=== PATIENT | female | born 1945 | race Caucasian/White ===

== ENCOUNTER 2017-02-26 09:23 | Emergency (ER) | payer OTHER ==
[~2017-02-26] VITALS: Ht 149.9 cm; Wt 55.0 kg
[2017-02-26 09:27] VITALS: BP 188/79; PULSE 66; RESP 18; TEMP 98.5; O2SAT 98
[2017-02-26] MEDS ORDERED: HYDR-3576 PO (09:48)
[2017-02-26] MEDS ORDERED: ATOR80TA45 PO (09:48)
[2017-02-26] MEDS ORDERED: ASPI-516 CHEW (09:48)
[2017-02-26] MEDS ORDERED: LANTUS2P SQ (09:48)
[2017-02-26] MEDS ORDERED: LISI20TA3 PO (09:48)
[2017-02-26] MEDS ORDERED: METF1000 PO (09:48)
[2017-02-26] MEDS ORDERED: FENO160T PO (09:48)
[2017-02-26] MEDS ORDERED: ZOLP10TA3 PO (09:48)
[2017-02-26] MEDS ORDERED: CITA40TA4 PO (09:48)
--- NOTE | 2017-02-26 10:10 | PD ---
HPI Chief Complaint: Fall Time Seen by Provider: 09:55 Travel History International Travel<30 days: No Contact w/Intl Traveler<30days: No Traveled to known affect area: No History of Present Illness HPI 72-year-old female presents to emergency department complaining of low back pain and left hip pain after a slip and fall that occurred just prior to arrival. Patient states that she slipped and fell onto her buttocks and has developed this pain. Patient denies numbness, tingling, saddle anesthesia, loss of bowel or bladder function. Patient does not have chronic back pain. Patient has a history of diabetes. Patient states that this time her low back pain as constant, moderate, and worse with movement. Patient is able to move her hip however she is having difficulty secondary to pain. She is not taking medication for this yet. PFSH Past Medical History High Cholesterol: Yes Diabetes: Yes Patient Takes Glucophage: Yes Diminished Hearing: No Hypertension: Yes Immunizations Current: Yes Tetanus Vaccination: Unknown Influenza Vaccination: Yes ?: Not Menopausal: Yes Tubal Ligation: Yes Past Surgical History Section: Yes Cholecystectomy: Yes Eye Surgery: Yes (CATARACT SURGERY ) Genitourinary Surgery: Yes (BLADDER STIMULATOR ) Social History Alcohol Use: Yes (occ) Tobacco Use: No Substance Use: No Allergies-Medications (Allergen,Severity, Reaction): Coded Allergies: Sulfa (Sulfonamide Antibiotics) (Verified Allergy, Unknown, itching/ rashes , 02/26/17) Reported Meds & Prescriptions Reported Meds & Active Scripts Active Robaxin (Methocarbamol) 500 Mg Tab 500 Mg PO TID 5 Days Reported Aspirin 81 Mg Chew 81 Mg CHEW DAILY Citalopram (Citalopram Hydrobromide) 40 Mg Tab 40 Mg PO DAILY Zolpidem (Zolpidem Tartrate) 10 Mg Tab 10 Mg PO HS PRN Lorcet (Hydrocodone-Acetaminophen) 5-325 mg Tab 1 Tab PO Q6H PRN Lisinopril-Hctz 20-25 Mg Tab 1 Tab PO DAILY Fenofibrate 160 Mg Tab 160 Mg PO DAILY Atorvastatin (Atorvastatin Calcium) 80 Mg Tab 80 Mg PO HS Metformin (Metformin HCl) 1,000 Mg Tab 1,000 Mg PO BIDPC Lantus Inj (Insulin Glargine) 1,000 Unit/10 Ml Vial 19 Units SQ BID Review of Systems Except as stated in HPI: all other systems reviewed are Neg Physical Exam Narrative GENERAL: Well-nourished, well-developed patient. In mild distress laying on her right side SKIN: Focused skin assessment warm/dry. HEAD: Normocephalic. EYES: No scleral icterus. No injection or drainage. NECK: Supple, trachea midline. No JVD or lymphadenopathy. No midline tenderness CARDIOVASCULAR: Regular rate and rhythm without murmurs, gallops, or rubs. RESPIRATORY: Breath sounds equal bilaterally. No accessory muscle use. GASTROINTESTINAL: Abdomen soft, non-tender, nondistended. MUSCULOSKELETAL: No cyanosis, or edema. Lumbar region- TTP over lower lumbar region.crepitus or step-off. repeat exam- TTP over L2-3 paraspinous muscle L>R Left hip- pain with movement. Neurovascularly intact. Data Data Last Documented VS Vital Signs Date Time Temp Pulse Resp B/P (MAP) Pulse Ox O2 Delivery O2 Flow Rate FiO2 02/26/17 11:55 65 16 186/79 (114) 95 02/26/17 09:52 Room Air 02/26/17 09:27 98.5 Orders Orders Spine, Lumbar - Ltd (Ap & Lat) (02/26/17 ) Acetamin-Hydrocod 325-5 Mg ([place] 5-325 (02/26/17 10:15) Hip, Uni(Ap&Lat) W Ap Pelvis (02/26/17 ) Ed Discharge Order (02/26/17 11:29) MDM Medical Decision Making Medical Screen Exam Complete: Yes Emergency Medical Condition: Yes Differential Diagnosis Lumbar fracture versus contusion versus strain Hip contusion versus strain versus fracture Narrative Course 72-year-old female presents to emergency department complaining of low back pain and left hip pain after a slip and fall that occurred just prior to arrival. Patient states that she slipped and fell onto her buttocks and has developed this pain. Patient denies numbness, tingling, saddle anesthesia, loss of bowel or bladder function. Patient does not have chronic back pain. Patient has a history of diabetes. Patient states that this time her low back pain as constant, moderate, and worse with movement. Patient is able to move her hip however she is having difficulty secondary to pain. She is not taking medication for this yet. Vital signs stable Physical exam- patient in mild distress laying on right side. Patient reluctant to move onto her back secondary to pain. Patient was ambulatory to the emergency department. X-rays- no acute process Hydrocodone administer in the ED. Tramadol avoided secondary to her citalopram use. I discussed the x-ray findings with the patient. Patient was still having some paraspinous tenderness on the left reproducible palpation. Patient requested pain medication however, we'll avoid pain medication secondary to adverse side effects. Prescribed muscle relaxers for her pain and advised to use extreme caution as this can cause drowsiness and unsteadiness on the feet. Patient understands and will comply. Patient advised follow-up with her primary care physician within 2-3 days. Advised to follow-up in the emergency department if her pain persists or worsen. Diagnosis Primary Impression: Lumbar contusion Qualified Codes: S30.0XXA - Contusion of lower back and pelvis, initial encounter Additional Impressions: Contusion, hip Qualified Codes: S70.02XA - Contusion of left hip, initial encounter Muscle spasm Referrals: Primary Care Physician Additional Instructions: Follow-up with her primary care physician within 2-3 days. You may take Tylenol or Motrin per package instructions. If her pain worsens or persists return to the emergency department Use extreme caution with these medications a mechanical drowsy. Scripts Methocarbamol (Robaxin) 500 Mg Tab 500 MG PO TID for Muscle Spasm for 5 Days, TAB 0 Refills Prov: Becky Lino MD 02/26/17 Disposition: 01 DISCHARGE HOME Condition: Stable Rachelle Osuna Feb 26, 2017 10:10
[2017-02-26] MEDS ORDERED: ACETAMINOPHEN/HYDROcodone 325 MG/5 MG TAB PO ONE (10:15)
--- NOTE | 2017-02-26 11:00 | RADRPT ---
EXAM DATE/TIME: 02/26/2017 10:26 [facility] COMPARISON: No previous studies available for comparison. INDICATIONS : Fall. Left low back pain. MEDICAL HISTORY : None. SURGICAL HISTORY : Pain stimulator, right. ENCOUNTER: Initial ACUITY: 1 day PAIN SCORE: 7/10 LOCATION: Left low back FINDINGS: Examination of the left hip was performed with AP Pelvis. The primary and secondary trabecular patte rn of the femoral neck is intact. The hip joint is of normal width without significant sclerosis or bony hypertrophy. The acetabulum is grossly intact. Medical stimulator device box superimposed over the medial right iliac bone. CONCLUSION: No evidence of recent bony injury. Franklin Balderas MD on February 26, 2017 at 10:58 Board Certified Radiologist. This report was verified electronically.
--- NOTE | 2017-02-26 11:02 | RADRPT ---
EXAM DATE/TIME: 02/26/2017 10:26 [facility] COMPARISON: No previous studies available for comparison. INDICATIONS : Fall. Left low back pain. MEDICAL HISTORY : None. SURGICAL HISTORY : Pain stimulator, right. ENCOUNTER: Initial ACUITY: 1 day PAIN SCORE: 7/10 LOCATION: Left low back FINDINGS: Vertebral body height is maintained. There is a mild grade 1 anterolisthesis of L4 respect to L5. E ndplate sclerosis is present at L5-S1. Moderate hypertrophic changes of the facet joints L3-S1. Ped icles are seen at all levels. Arcuate lines of the sacrum are symmetrical. Bone density is diffusel y decreased with mild prominence of the vertical striation of the trabecular pattern of the lumbar ve rtebral bodies. CONCLUSION: Grade 1 anterolisthesis at L4-5. Osteopenia. No evidence of compression deformity. Franklin Balderas MD on February 26, 2017 at 10:59 Board Certified Radiologist. This report was verified electronically.
[2017-02-26] MEDS ORDERED: ROBA500T PO (11:28)
[2017-02-26 11:55] VITALS: BP 186/79
== END 2017-02-26 11:56 | disposition home or self-care (01) ==
LOC: NEPD 09:23
DX: S30.0XXA Contusion of lower back and pelvis, initial encounter (principal); S70.02XA Contusion of left hip, initial encounter; M62.838 Other muscle spasm; E11.9 Type 2 diabetes mellitus without complications; E78.00 Pure hypercholesterolemia, unspecified; I10 Essential (primary) hypertension; W01.0XXA Fall on same level from slipping, tripping and stumbling without subsequent striking against object, initial encounter; Z79.82 Long term (current) use of aspirin; Z79.4 Long term (current) use of insulin
CPT/HCPCS: 72100; 73502; 99284